=== PATIENT | female | born 1970 | race Two or more races ===

== ENCOUNTER → 2018-04-09 | Outpatient (CLI) | payer OTHER ==
[~2018-04-09] MED LIST: CEFAZOLIN 1,000 MG ONE; DEXAMETHASONE 4 MG/ML, 1ML ONE; FENTANYL PF 250 MCG/5ML ONE; GLYCOPYRROLATE 0.2MG/1ML, 5ML ONE; KETOROLAC 30 MG/1 ML ONE; LEVO88TA2 PO; LIDOCAINE-MPF 2% ,5ML ONE; MIDAZOLAM 1 MG/ML, 2ML ONE; NEOSTIGMINE 1 MG/ML, 10ML ONE; PROPOFOL 10 MG/ML, 20ML ONE; ROCURONIUM 10MG/ML,5ML ONE
[2018-04-09 16:08] LABS: BASOPHILS # (AUTO) 0.04 x10^3/uL (0-0.1); BASOPHILS % (AUTO) 1 % (0-1); EOSINOPHILS # (AUTO) 0.07 x10^3/uL (0-0.4); EOSINOPHILS % (AUTO) 1 % (1-7); LYMPHOCYTES # (AUTO) 2.13 x10^3/uL (1-3.4); LYMPHOCYTES % (AUTO) 30 % (22-44); MD NO; MEAN CORPUSCULAR HEMOGLOBIN 26.2 pg (27.0-34.8); MEAN CORPUSCULAR HGB CONC 33.4 g/dL (32.4-35.8); MEAN CORPUSCULAR VOLUME 78.5 fL (80-100); MEAN PLATELET VOLUME 8.5 fL (7.4-10.4); MONOCYTES # (AUTO) 0.43 x10^3/uL (0.2-0.8); MONOCYTES % (AUTO) 6 % (2-9); NEUTROPHILS # (AUTO) 4.42 x10^3/uL (1.8-6.8); NEUTROPHILS % (AUTO) 62 % (42-75); PLATELET COUNT 337 x10^3/uL (130-400); RED BLOOD COUNT 4.06 x10^6/uL (3.82-5.3); RED CELL DISTRIBUTION WIDTH 16.2 % (9.6-15.2)
== END | disposition home or self-care (01) ==
LOC: STAR 15:16
PROVIDERS: ATTEND Obstetrics & Gynecology Female Pelvic Medicine and Reconstructive Surgery
DX: Z01.818 Encounter for other preprocedural examination (principal); D25.9 Leiomyoma of uterus, unspecified; N85.2 Hypertrophy of uterus; N92.0 Excessive and frequent menstruation with regular cycle
CPT/HCPCS: 36415; 84703; 85025

== ENCOUNTER 2018-04-16 11:24 | Day surgery (SDC) | payer OTHER ==
[2018-04-09 16:10] VITALS: BP 153/79
[~2018-04-16] VITALS: Ht 165.1 cm; Wt 64.2 kg
[~2018-04-16 11:24] MED LIST changes: -CEFAZOLIN 1,000 MG ONE; -DEXAMETHASONE 4 MG/ML, 1ML ONE; -FENTANYL PF 250 MCG/5ML ONE; -GLYCOPYRROLATE 0.2MG/1ML, 5ML ONE; -KETOROLAC 30 MG/1 ML ONE; -LIDOCAINE-MPF 2% ,5ML ONE; -MIDAZOLAM 1 MG/ML, 2ML ONE; -NEOSTIGMINE 1 MG/ML, 10ML ONE; -PROPOFOL 10 MG/ML, 20ML ONE; -ROCURONIUM 10MG/ML,5ML ONE
[2018-04-16] MEDS ORDERED: LACTATED RINGERS 1,000 ML IV SCH ×2 (11:32→14:01)
[2018-04-16] MEDS ORDERED: ONDANSETRON ODT 8 MG PO ONE (12:00)
[2018-04-16] MEDS ORDERED: ACETAMINOPHEN 500 MG TABLET PO ONE (12:00)
[2018-04-16] MEDS ORDERED: GABAPENTIN 300 MG CAPSULE PO ONE (12:00)
[2018-04-16 12:07] LABS: HCG UR SG 1.017 (1.003-1.030)
[2018-04-16] MEDS ORDERED: BUPIVACAINE/PF-EPI 0.25% 1:200K ONE (12:13)
[2018-04-16] MEDS ORDERED: THROMBIN 20,000 UNIT VIAL TP ONE (12:13)
[2018-04-16] MEDS ORDERED: NEOMY/POLYMYXIN B GU IRR. 1 ML IRRIG ONE (12:13)
[2018-04-16] MEDS ORDERED: INDIGO CARMINE 0.8%, 5ML ONE (12:13)
[2018-04-16] MEDS ORDERED: LIDOCAINE-MPF 2% ,5ML ONE (12:31)
[2018-04-16] MEDS ORDERED: GLYCOPYRROLATE 0.2MG/1ML, 5ML ONE (12:31)
[2018-04-16] MEDS ORDERED: KETOROLAC 30 MG/1 ML ONE (12:31)
[2018-04-16] MEDS ORDERED: CEFAZOLIN 1,000 MG ONE (12:31)
[2018-04-16] MEDS ORDERED: DEXAMETHASONE 4 MG/ML, 1ML ONE (12:31)
[2018-04-16] MEDS ORDERED: ROCURONIUM 10 MG/ML,10ML ONE (12:31)
[2018-04-16] MEDS ORDERED: NEOSTIGMINE 1 MG/ML, 10ML ONE (12:31)
[2018-04-16] MEDS ORDERED: PROPOFOL 10 MG/ML, 20ML ONE (12:31)
[2018-04-16] MEDS ORDERED: LABETALOL 5MG/ML, 20ML IV PRN (13:00)
[2018-04-16] MEDS ORDERED: MIDAZOLAM 1 MG/ML, 2ML IV PRN (13:00)
[2018-04-16] MEDS ORDERED: OXYcodone 5 MG/5 ML ORAL.SOL UDC PO PRN (13:00)
[2018-04-16] MEDS ORDERED: HYDROmorphone 1 MG/ML, 1ML IV PRN (13:00)
[2018-04-16] MEDS ORDERED: SCOPOLAMINE PATCH, 1.5MG PATCH.TD72 TD PRN (13:00)
[2018-04-16] MEDS ORDERED: ONDANSETRON 2MG/ML, 2ML IV PRN (13:00)
[2018-04-16] MEDS ORDERED: PROMETHAZINE 25 MG SUPP PR PRN (13:00)
[2018-04-16] MEDS ORDERED: ALBUTEROL/IPRATROPIUM 2.5MG/0.5MG, 3 ML NPPB PRN (13:00)
[2018-04-16] MEDS ORDERED: MEPERIDINE/PF 25MG/0.5ML IVPush PRN (13:00)
[2018-04-16] MEDS ORDERED: SILVER NITRATE STICK TP ONE (13:55)
[2018-04-16] MEDS ORDERED: HYDROcodone/APAP 5/325 TABLET PO PRN (14:30)
[2018-04-16] MEDS ORDERED: IBUPROFEN 600 MG TABLET PO PRN (14:30)
[2018-04-16] MEDS ORDERED: PROMETHAZINE 25 MG SUPP PR ONE (14:30)
[2018-04-16] MEDS ORDERED: ONDANSETRON 2MG/ML, 2ML IVPush PRN (14:30)
[2018-04-16] MEDS ORDERED: OXYcodone 5 MG/5 ML ORAL.SOL UDC ONE (14:58)
[2018-04-16] MEDS ORDERED: FENTANYL PF 100 MCG/2ML ONE (14:59)
[2018-04-16] MEDS: FENTANYL PF 100 MCG/2ML IV PRN ×2 (15:00→15:15)
== END 2018-04-16 19:25 | disposition home or self-care (01) ==
LOC: OUT 11:24
PROVIDERS: ATTEND Obstetrics & Gynecology Female Pelvic Medicine and Reconstructive Surgery
DX: D25.0 Submucous leiomyoma of uterus (principal); N92.0 Excessive and frequent menstruation with regular cycle; N94.6 Dysmenorrhea, unspecified; D64.9 Anemia, unspecified; N88.8 Other specified noninflammatory disorders of cervix uteri; Z98.890 Other specified postprocedural states; E03.9 Hypothyroidism, unspecified; Z88.8 Allergy status to other drugs, medicaments and biological substances
CPT/HCPCS: 58573; 81025; 88307; J0690; J1100; J1885; J2250; J2704; J2710; J3010; J3490; J7120